=== PATIENT | male | born 1990 | race American Indian/Alaskan Native ===

== ENCOUNTER 2017-09-17 23:47 | Emergency (ER) | payer SELFPAY | END 2017-09-18 00:50 | disposition left against medical advice (07) | LOC: ED 23:47 | DX: R10.30 Lower abdominal pain, unspecified (principal); Z53.21 Procedure and treatment not carried out due to patient leaving prior to being seen by health care provider ==

== ENCOUNTER 2017-11-20 17:08 | Emergency (ER) | payer SELFPAY ==
[2017-11-20 17:14] VITALS: BP 115/74
--- NOTE | 2017-11-20 20:48 | Emergency Department Report ---
Chief Complaint: Headache Stated Complaint: MIGRAINE Time Seen by Provider: 11/20/17 20:45 - HPI History of Present Illness: 27-year-old -[place] male comes in complaining of headaches off and on since Saturday. Patient reports that the headache is located behind his right eye with some eye tearing. Patient put he had nausea early in the week but denies any at this time. Patient reports that he took ibuprofen today and his headache has resolved. Patient currently has no fever no chills no nausea no vomiting. He has no chest pain shortness of breathing. Currently has no headache at this time. - Exam Vital Signs: Vital Signs 11/20/17 17:10 Temperature 98.6 F Pulse Rate 82 Respiratory 16 Rate Blood Pressure 115/74 O2 Sat by Pulse 98 Oximetry Physical Exam: Patient's alert and oriented 3 no acute distress. Patient able to move all extremities, EOMI intact pupils reacted to light and accommodation. MSE screening note: Focused history and physical exam performed. Due to findings the following was ordered: Patient is a non-emergent visit. Discussed the patient he can follow up with [facility] patient's given a handout. Patient verbalized understanding. ED Disposition for MSE Condition: Stable Referrals: PRIMARY CARE, [Primary Care Provider] - 3-5 Days
== END 2017-11-20 20:50 | disposition left against medical advice (07) ==
LOC: ED 17:08
DX: R51 Headache (principal); R11.0 Nausea; Z53.21 Procedure and treatment not carried out due to patient leaving prior to being seen by health care provider

== ENCOUNTER 2018-08-06 19:42 | Emergency (ER) | payer SELFPAY ==
[2018-08-06 20:05] VITALS: BP 133/80
[2018-08-07] MEDS ORDERED: ROCEPHIN IM STA (00:59)
[2018-08-07] MEDS ORDERED: ZITHROMAX PO ONE (00:59)
[2018-08-07] MEDS ORDERED: XYLOCAINE 1% MPF 5 mL INFILTRATI ONE (00:59)
--- NOTE | 2018-08-07 01:00 | Emergency Department Report ---
ED Male HPI - General Chief complaint: Urogenital-Male Stated complaint: ABD PAIN Time Seen by Provider: 08/07/18 00:54 Source: patient Mode of arrival: Ambulatory Limitations: No Limitations - History of Present Illness Initial comments: 20-year-old [facility] emergency department complaining of possible STD exposure about 5 days ago. Complaining of a milky white discharge and burning with urination. No fever, chills, sweats. No testicular pain. No constipation or diarrhea. No no hematuria, no hematemesis or hematochezia. Reports no ra shes. Unsure if his partners having symptoms MD Complaint: penile discharge -: Gradual Location: penis Radiation: none Severity: mild Quality: burning Consistency: constant Improves with: none Worsens with: none discharge - Related Data Sexually active: Yes Previous Rx's Medication Instructions Recorded Last Taken Type Sulfamethoxazole/Trimethoprim 1 each PO BID #14 tablet 06/07/18 Unknown Rx [Bactrim DS TAB] Allergies Allergy/AdvReac Type Severity Reaction Status Date / Time No Known Allergies Allergy Unverified 11/20/17 17:14 ED Review of Systems ROS: Stated complaint: ABD PAIN Other details as noted in HPI Constitutional: denies: chills, fever Eyes: denies: eye pain, eye discharge, vision change ENT: denies: ear pain, throat pain Respiratory: denies: cough, shortness of breath, wheezing Cardiovascular: denies: chest pain, palpitations Endocrine: no symptoms reported Gastrointestinal: denies: abdominal pain, nausea, diarrhea Genitourinary: dysuria. denies: urgency Musculoskeletal: denies: back pain, joint swelling, arthralgia Skin: denies: rash, lesions Neurological: denies: headache, weakness, paresthesias Psychiatric: denies: anxiety, depression Hematological/Lymphatic: denies: easy bleeding, easy bruising ED Past Medical Hx - Past Medical History Previous Medical History?: No - Surgical History Past Surgical History?: No - Social History Smoking Status: Current Every Day Smoker Substance Use Type: Alcohol - Medications Home Medications: Home Medications Medication Instructions Recorded Confirmed Last Taken Type Sulfamethoxazole/Trimethoprim 1 each PO BID #14 tablet 06/07/18 Unknown Rx [Bactrim DS TAB] ED Physical Exam - General Limitations: No Limitations General appearance: alert, in no apparent distress - Head Head exam: Present: atraumatic, normocephalic - Eye Eye exam: Present: normal appearance, PERRL, EOMI Pupils: Present: normal accommodation - ENT ENT exam: Present: mucous membranes moist - Neck Neck exam: Present: normal inspection - Respiratory Respiratory exam: Present: normal lung sounds bilaterally. Absent: respiratory distress - Cardiovascular Cardiovascular Exam: Present: regular rate, normal rhythm. Absent: systolic murmur, diastolic murmur, rubs, gallop - GI/Abdominal GI/Abdominal exam: Present: soft, normal bowel sounds, other (no inguinal lymphadenopathy. No rashes appreciated. No lower abdominal pain superpubic pain.). Absent: distended, tenderness, guarding, rebound, hyperactive bowel sounds, bruit, pulsatile mass - Rectal Rectal exam: Present: deferred - Extremities Exam Extremities exam: Present: normal inspection - Back Exam Back exam: Present: normal inspection. Absent: CVA tenderness (R), CVA tenderness (L) - Neurological Exam Neurological exam: Present: alert, oriented X3, CN II-XII intact - Psychiatric Psychiatric exam: Present: normal affect, normal mood - Skin Skin exam: Present: warm, dry, intact, normal color. Absent: rash ED Course Vital Signs 08/06/18 20:03 Temperature 99.4 F Pulse Rate 100 H Respiratory 20 Rate Blood Pressure 133/80 O2 Sat by Pulse 98 Oximetry Critical care attestation.: If time is entered above; I have spent that time in minutes in the direct care of this critically ill patient, excluding procedure time. ED Disposition Clinical Impression: Possible exposure to STD, Penile discharge, Dysuria Disposition: - TO HOME OR SELFCARE Is pt being admited?: No Does the pt Need Aspirin: No Condition: Stable Instructions: Sexually Transmitted Diseases (ED), Safe Sex (ED), Dysuria (ED) Additional Instructions: Emergency Department. She Displays Any Fever, Hematuria, Worsening Symptoms, Testicular Swelling Referrals: [facility] [place] [Outside] - 3-5 Days
[2018-08-07 01:10] LABS: Bilirubin,Urine NEG (Negative); Blood,Urine NEG (Negative); Color,Urine Yellow (Yellow)
== END 2018-08-07 01:19 | disposition home or self-care (01) ==
LOC: ED 19:42
DX: R30.0 Dysuria (principal); R36.9 Urethral discharge, unspecified; F17.200 Nicotine dependence, unspecified, uncomplicated
CPT/HCPCS: 81001; 87086; 87591; 96372; 99283; J0696